=== PATIENT | male | born 1930 | race Caucasian/White ===

== ENCOUNTER 2016-09-25 22:01 | Observation (INO) | payer OTHER, BC ==
[~2016-09-25] VITALS: Ht 177.8 cm; Wt 100.0 kg
[~2016-09-25 22:01] MED LIST: AMBIEN10 MG PO; GLUCOSAMINE 1,1 EAC1 PO; INDERAL XL120 MG PO; LO-DOSE ASPIRIN81 M2 PO; LOSARTAN POTAS100 MG PO; NORCO 5/3251 TABLET PO; OMEPRAZOLE20 MG PO; PROCARDIA20 MG PO; SIMVASTATIN40 MG PO; TERAZOSIN HCL5 MG PO; TRIAMTERENE W/1 EACH PO
[2016-09-25 23:00] LABS: HEMATOCRIT 41.9 % (38.0-50.0); MCH 31.5 PG (29.0-34.0); MCHC 33.7 G/DL (30.0-36.0); MCV 93.5 FL (86-99); MEAN PLAT.VOLUME 10.9 uM^3 (9.0-12.4); PLATELET COUNT 159 K/uL (156-360); RBC DIS.WIDTH-CV 12.2 % (11.8-14.6); RBC DIS.WIDTH-SD 42.1 % (39-53); RED BLOOD COUNT 4.48 M/uL (4.00-5.50); WHITE BLOOD COUNT 6.7 K/uL (4.1-10.2)
[2016-09-25 23:11] LABS: INTER. NORMALIZED RATIO 1.1; PROTHROMBIN TIME 10.8 (9.2-11.2); PTT 28.5 (25-32)
[2016-09-25 23:16] LABS: CHLORIDE 103 mEq/L (99-109); POTASSIUM 4.4 mEq/L (3.7-5.4); SODIUM 139 mEq/L (136-147)
[2016-09-25 23:18] LABS: GLUCOSE 109 mg/dL (70-99)
[2016-09-25 23:20] LABS: ANION GAP 11 MEQ/L (2-14); TOTAL BILIRUBIN 0.9 mg/dL (0.0-1.0)
[2016-09-25 23:22] LABS: ALKALINE PHOSPHATASE 89 IU/L (3-129); GFR ESTIMATE (CALCULATED) > 59 mL/min/
[2016-09-25 23:23] LABS: UREA NITROGEN (BUN) 30 mg/dL (9-23)
[2016-09-25 23:24] LABS: DIRECT BILIRUBIN 0.3 mg/dL (0.0-0.3)
[2016-09-25 23:25] LABS: LIPASE 40 U/L (1.0-51.0)
[2016-09-25 23:30] LABS: TROP-I INTERPRETATION NEGATIVE; TROPONIN-I < 0.01 ng/mL (0.0-0.30)
[2016-09-26] MEDS ORDERED: LOSARTAN POTASS50 MG PO (00:32)
[2016-09-26] MEDS ORDERED: STOOL SOFTENER100 M1 PO (00:33)
[2016-09-26] MEDS ORDERED: LAXATIVE25 MG PO (00:33)
[2016-09-26] MEDS ORDERED: LIDOCAINE700 MG TD (00:34)
[2016-09-26] MEDS ORDERED: AMBIEN CR12.5 MG PO (00:34)
[2016-09-26] MEDS ORDERED: TRAMADOL HCL50 MG PO (00:36)
[2016-09-26 05:19] LABS: TROP-I INTERPRETATION NEGATIVE; TROPONIN-I < 0.01 ng/mL (0.0-0.30)
[2016-09-26 11:50] LABS: TROP-I INTERPRETATION NEGATIVE; TROPONIN-I < 0.01 ng/mL (0.0-0.30)
[2016-09-26 15:14] VITALS: BP 157/67
== END 2016-09-26 15:44 | disposition home or self-care (01) ==
LOC: EME 22:01 → EDOF 09-26 00:33
PROVIDERS: Emergency Medicine; Physician Assistant
DX: R07.89 Other chest pain (principal); I10 Essential (primary) hypertension; G47.33 Obstructive sleep apnea (adult) (pediatric); I25.10 Atherosclerotic heart disease of native coronary artery without angina pectoris; Z95.5 Presence of coronary angioplasty implant and graft; E78.5 Hyperlipidemia, unspecified; E66.9 Obesity, unspecified; Z87.891 Personal history of nicotine dependence; M19.90 Unspecified osteoarthritis, unspecified site; Z66 Do not resuscitate
CPT/HCPCS: 71020; 80048; 80076; 83690; 83880; 84484; 85027; 85610; 85730; 93005; 94640; 99281; 99285; G0378; J0360; J1644; J2270